=== PATIENT | female | born 1955 | race Caucasian/White ===

== ENCOUNTER 2025-06-20 14:21 | Emergency (ER) | payer MEDICARE, SELFPAY ==
--- NOTE | 2025-06-20 14:28 | ED_ITS ---
HPI - Skin/Abscess/Foreign Bdy General Chief complaint: Skin/Abscess/Foreign Body Stated complaint: Skin Sore/Headache Time Seen by Provider: 06/20/25 14:37 Source: patient and RN notes reviewed Mode of arrival: ambulatory Limitations: dementia History of Present Illness HPI narrative: 70-year-old female presents with concern for headache for the past 4 days. She reports she noticed a red painful bumps in her hairline today. She denies nasal congestion, rhinorrhea, sore throat. She denies injury or trauma. She denies general malaise, fever, body aches, chills, sweats. complaint: other (Redness) Related Data Home Medications ?Medication ?Instructions ?Recorded ?Confirmed ?Last Taken ?Type fluoxetine 40 mg capsule mg 06/20/25 Unknown History levothyroxine 100 mcg tablet mcg 06/20/25 Unknown His tory omeprazole 40 mg capsule,delayed mg 06/20/25 Unknown History release pravastatin 40 mg tablet mg 06/20/25 Unknown History Allergies Allergy/AdvReac Type Severity Reaction Status Date / Time codeine AdvReac Nausea Verified 06/20/25 14:37 Review of Systems Review of Systems: GENERAL: Well-appearing, well-nourished, and in no acute distress. HEAD: Normocephalic, atraumatic. EYES: PERRLA, sclera clear, and EOMI. No nystagmus. ENT: Nares clear. Mucous membranes moist. NECK: Supple. CHEST: No respiratory distress. Speaks in full sentences. HEART: Regular rate and rhythm. EXTREMITIES: Normal range of motion. No edema. Normal strength and sensation. SKIN: Warm, dry, no visible rash. Zosteriform lesion noted in the hairline NEURO: Alert and oriented x3. No focal deficits. Cranial nerves II through XII grossly intact PSYCH: Normal mood and affect All systems reviewed & are unremarkable except as noted in HPI and below PMFSH Comments At time of signature, agree with nursing past medical, surgical, social and family history. There is no relevant family history pertinent to the presenting complaint Exam Narrative: GENERAL: Well-appearing, well-nourished, and in no acute distress. HEAD: Normocephalic, atraumatic. EYES: PERRLA, conjunctivae clear ENT: Mucous membranes moist. NECK: Supple. No lymphadenopathy CHEST: Clear to auscultation. No respiratory distress. HEART: Regular rate and rhythm. SKIN: Warm, dry. Erythema, induration, tenderness, warmth with sharp margins noted (xx). No vesicles, bullae, necrosis, ecchymosis, crepitus noted. NEURO: Alert and oriented x3. PSYCH: Normal mood and affect Course Course Emergency Course: Patient is aware of diagnosis, understands and agrees to treatment plan. Anticipatory guidance given. Patient agrees to follow-up as directed and is aware of reasons to seek care at the emergency department. Portions of this record may have been created with voice recognition software Level of Care: Express Care Visit Vital Signs Vital signs: Reviewed. MDM - Skin/Abscess/Foreign Bdy MDM Narrative Medical decision making narrative: I evaluated this in the express care. History is obtained from patient who is an independent historian and physical exam was performed.? Available medical records were reviewed. ? Exam findings and relevant testing show no acute concerns or changes; patient is non-toxic appearing and is in no distress. Does not appear at this time to be erythema multiforme, bullous, SJS, TEN; no evidence at this time to suggest RMSF, NSTI, endocarditis or Lyme disease; patient looks well, nontoxic and is tolerating oral intake; no neurologic signs or symptoms; no headache, photophobia or neck pain; afebrile.? Patient does not have history of of penetrating trauma, laceration, blunt trauma, recent surgery, immunosuppression, malignancy, obesity, alcoholism, corticosteroid use.? Discussed the importance of follow-up, patient agrees; question, cellulitis versus necrotizing soft tissue infection versus abscess.?? Patient is appropriate for outpatient treatment and follow-up. Critical Care Time Critical Care Time Critical Care Time: No Discharge Plan Discharge Clinical Impression: Shingles Patient Disposition: Home Condition: Stable Instructions: Shingles (ED) Additional Instructions: Alternate Tylenol and Motrin for pain, body aches, fever. You may take 2 regular strength Tylenol every 4 hours, alternate with 3 regular strength Motrin every 6 hours so you are taking something every 2-3 hours. Apply topical pain medicine and take antiviral medicine as prescribed. Shingles pain can last weeks, sometimes months. If your pain persists after antiviral medication is complete please follow-up with your primary care provider for a long-term pain control plan. Follow-up with your doctor in the next 2 to 3 days. Go to the emergency room if you have any urgent concerns. Patient Language: Sami Prescriptions: New valacyclovir 1 gram tablet 1,000 mg PO TID 7 Days Qty: 21 0RF tramadol 50 mg tablet 50 mg PO Q6H PRN (Reason: pain) Qty: 20 0RF lidocaine 5 % cream 1 applic topical TID PRN (Reason: pain) Qty: 30 0RF No Action fluoxetine 40 mg capsule pravastatin 40 mg tablet omeprazole 40 mg capsule,delayed release(DR/EC) levothyroxine 100 mcg tablet Follow-up/Referrals: PHYSICIAN,MEDICAL ADMINISTRATIVE ASSISTANT [Primary Care Provider, Internal Medicine] Rima Jernigan DO [Physician, Family Practice] Referral Note: [place] Time of Disposition: 14:54
[2025-06-20 14:35] VITALS: BP 104/47; PULSE 89; RESP 16; TEMP 36.2; O2SAT 99
--- OUTSIDE RECORDS SUMMARY | 2025-06-20 16:26 | XMS_ITS | Clinical Summary ---
Author Organization [facility] Address [address] [place] [address] Care Team Providers Care Prescription Clerk Lenses Name Role Phone Unavailable Primary Care Provider Unavailabl e Social History Tobacco Use Types Packs/Day Years Used Date Smoking Tobacco: Never Assessed Comments Unknown Sex and Gender Information Value Date Recorded Sex Assigned at Not on file Legal Sex Female 10:57 AM CDT Gender Identity Not on file Sexual Orientation Not on file Plan of Treatment Upcoming Encounters Date Type Department Care Team (Late st Contact Info) Description 11/25/2025 1:00 PM CDT Office Visit [facility] [address] [address] [address] [place] [address] [place] [address] [place] [address] Health Maintenance Due Date Last Done Comments Colorectal Cancer Screening Colonoscopy (10 Years) 1955 Hepatitis C 02/20/1974 DTaP, Tdap and Td Vaccines ( 1 - Tdap) 02/20/1975 Mammogram Screening 1996 Pneumococcal Vaccine: 50+ Ye ars (1 of 1 - PCV) 02/20/2006 Zoster Vaccines (1 of 2) 02/20/2006 Dexa Scan (General) 02/20/2021 COVID-19 Vaccine (1 - 2023-2 5 season) 2025 Influenza Adult (#1) 2025 RSV Immunization or 60+ Years (1 - 1-dose 75+ series) 02/20/2031 Hepatitis A Vaccines Aged Out No long er eligible based on patient's age to complete this topic Meningococcal B Vaccine Aged Out No l onger eligible based on patient's age to complete this topic Meningococcal Vaccine Aged Out No dodie alexi eligible based on patient's age to complete this topic RSV Immunizations Under 20 Months Aged Out No longer eligible based on patient's age to complete this topic Insurance MEDICARE PART A
== END 2025-06-20 15:01 | disposition home or self-care (01) ==
PROVIDERS: Emergency Provider Nurse Practitioner
DX: B02.9 Zoster without complications (principal); Z79.899 Other long term (current) drug therapy
CPT/HCPCS: 99203; G0463

== ENCOUNTER 2025-06-24 17:14 | Emergency (ER) | payer MEDICARE, SELFPAY ==
--- OUTSIDE RECORDS SUMMARY | 2018-05-30 12:00 | XMS_ITS | Continuity of Care Document ---
Author Organization [facility] Address [address] [place] [address] Phone Care Team Providers Care Irradiated Fuel Handler Name Role Phone Eliseo Godfrey PT Unavailable Unavailable Procedures Procedure Date Therapeutic Exercise Therapeutic Exercise Neuromuscular Re-Ed Manual Therapy Vasopneumatic Therapeutic Exercise Neuromuscular Re-Ed Manual Therapy Vasopneumatic Therapeutic Exercise Neuromuscular Re-Ed Manual Therapy Vasopneumatic PT Evaluation Moderate Complexity Therapeutic Exercise Manual Therapy Vasopneumatic Advance Directives Directive Yes / No Effective Date File Name No Information Encounters Encounter Description Practice Location Reason(s) For Visit Diagnoses Date Provider Providers Copied on Encounter [facility], [address], [place], [place], [id number], tel:[phone] [place] Stiffness of right ankle, not elsewhere classifiedMuscle weakness (generalized)Oth er abnormalities of gait and mobilitySprain of unspecified ligament of right ankle, subs encntr Sep-2 5-201 8 Epifanio Gomes. . [facility], [address], [place], [place], [id number], tel:[phone] [place] Stiffness of right ankle, not elsewhere classifiedMuscle weakness (generalized)Oth er abnormalities of gait and mobilitySprain of unspecified ligament of right ankle, subs encntr Sep-2 0-201 8 Epifanio Gomes. . [facility], [address], [place], [place], [id number], tel:[phone] [place] Stiffness of right ankle, not elsewhere classifiedMuscle weakness (generalized)Oth er abnormalities of gait and mobilitySprain of unspecified ligament of right ankle, subs encntr Sep-1 8-201 8 Epifanio Gomes. . [facility], [address], [place], [place], [id number], tel:[phone] [place] Stiffness of right ankle, not elsewhere classifiedMuscle weakness (generalized)Oth er abnormalities of gait and mobilitySprain of unspecified ligament of right ankle, subs encntr Sep-1 4-201 8 Epifanio Goems. . [facility], [address], [place], [place], [id number], tel:[phone] [place] Stiffness of right ankle, not elsewhere classifiedMuscle weakness (generalized)Oth er abnormalities of gait and mobilitySprain of unspecified ligament of right ankle, subs encntr Sep-1 2-201 8 Epifanio Gomes. . 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 [facility] [id number] Social History Type Description Quantity Date Captured Comments Sex Female Smoking Status No Information Chief Complaint And Reason For Visit No Information Reason For Referral Reason For Referral No Information History Of Present Illness Encounter Date Complaint History Of Prese nt Illness No Information Functional Status Date Functional Assessmen t No Information Instructions Date Instruction Additional Infor mation No Information Assessments Type Assessment Date No Information Patient Care Teams Name Effective Dates (start - stop) Status Members No Information
[2025-06-24 17:20] VITALS: BP 133/65; PULSE 83; RESP 16; TEMP 36.6; O2SAT 100
--- NOTE | 2025-06-24 18:18 | ED.SKABFB ---
HPI - Skin/Abscess/Foreign Bdy General Chief complaint: Skin/Abscess/Foreign Body Stated complaint: Skin Problem/Dizziness/Pain/Nausea Time Seen by Provider: 06/24/25 17:50 Source: patient and RN notes reviewed Mode of arrival: ambulatory Limitations: no limitations History of Present Illness HPI narrative: 70-year-old female presents Express Care complaining shingles pain. Patient was here approximately 4 days ago was diagnosed with shingles to her scalp. Patient was sent home with topical lidocaine, tramadol, and valacyclovir. Patient says she has an shingles for approximately 8 days now. Patient says the pain is not getting any better injuries reported getting worse. Patient reports a severe headache from the rash reports slight nausea and decreased appetite due to the pain. Patient has tried the tramadol on topical lidocaine without relief. Patient has also been taking Motrin without any relief. Patient denies any fevers, worsening rash, vision problems, hearing problems, chest pain, breathing problems, or any other symptoms. Patient denies any significant past medical problems. Related Data Home Medications ?Medication ?Instructions ?Recorded ?Confirmed ?Last Taken ?Type fluoxetine 40 mg capsule mg 06/20/25 Unknown History levothyroxine 100 mcg tablet mcg 06/20/25 Unknown History omeprazole 40 mg capsule,delayed mg 06/20/25 Unknown History release pravastatin 40 mg tablet mg 06/20/25 Unknown History Allergies Allergy/AdvReac Type Severity Reaction Status Date / Time codeine AdvReac Nausea Verified 06/20/25 14:37 Review of Systems Review of Systems: CONSTITUTIONAL: Denies fever, chills, or sweats. EYES: Denies visual changes, redness, or discharge. ENT: Denies rhinorrhea, congestion, sore throat, hearing problems, or otalgia. CARDIOVASCULAR: Denies chest pain, palpitations, or edema. RESPIRATORY: Denies cough or dyspnea. GASTROINTESTINAL: Denies abdominal pain, nausea, vomiting, or diarrhea. GENITOURINARY: Denies dysuria or hematuria. SKIN: Positive for rash and pain. Negative for itching. MUSCULOSKELETAL: Denies back pain, joint pain, or myalgia. NEUROLOGIC: Denies headache, numbness, or weakness. PSYCHIATRIC: Denies anxiety or depression. All other systems reviewed are negative, except as documented in HPI. [facility] Comments At the time of my signature, I reviewed and agree with the nursing past medical, surgical, social, and family history. There is no relevant family history pertinent to the patient complaint. Exam Narrative: GENERAL: This is a well-nourished, well-developed adult, in no apparent distress. They are non ill-appearing, nontoxic appearing. HEAD: normocephalic, atraumatic. EYES: Sclera clear/white. Conjunctiva normal. Vision is grossly intact. Extraocular movements intact. Pupils PERRLA EARS: External ears normal, Hearing grossly intact. NOSE: External nose normal THROAT: Mucous membranes moist, NECK: Neck supple, CARDIOVASCULAR: Regular rate and rhythm RESPIRATORY: Respiratory rate normal, respiratory effort nonlabored, no respiratory distress SKIN: Scalp: Erythematous fascicular, papular rash to the lateral right scalp. It is tender to palpate. No area of fluctuance, appears to be scabbing over. No surrounding cellulitis or erythema. No induration. No exudate. NEURO: awake, alert, and oriented to person, place and time. There were no obvious focal neurologic abnormalities. EXTREMITIES: No joint tenderness, effusion, or edema noted. Course Course Emergency Course: Portions of this record may have been created with voice recognition software Level of Care: Express Care Visit Vital Signs Vital signs: Vital Signs Temperature 97.9 F 06/24/25 17:20 Pulse Rate 83 06/24/25 17:20 Respiratory Rate 16 06/24/25 17:20 Blood Pressure 133/65 06/24/25 17:20 Pulse Oximetry 100 06/24/25 17:20 Oxygen Delivery Room Air 06/24/25 17:20 Temperature 97.9 F 06/24/25 17:20 Pulse Rate 83 06/24/25 17:20 Respiratory Rate 16 06/24/25 17:20 Blood Pressure 133/65 06/24/25 17:20 Pulse Oximetry 100 06/24/25 17:20 Oxygen Delivery Room Air 06/24/25 17:20 Reviewed MDM - Skin/Abscess/Foreign Bdy MDM Narrative Medical decision making narrative: Patient likely has neuritis from shingles virus. No new lesions or forming no other lesions noted elsewhere patient's body. Advised patient stop taking tramadol, will send a short course of Percocet for pain. Patient says she can not tolerate Percocet with food. Will also prescribe a short course of prednisone for neuritis. Advised patient continue taking valacyclovir as directed. Will Refer patient to PCP for further evaluation and to get established. Strict ER precautions discussed with patient specially she develops uncontrollable pain, worsening rash, rash forming elsewhere on her body, fevers, unable to eat or drink, vision problems and hearing problems, chest pain fever breathing problems, or any serious concerns. Discussed physical exam findings. Advised supportive measures and signs/symptoms to go to the ER. Pt is appropriate for outpt treatment and f/u. 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 Take the Percocet as directed, do not drive or operate machinery while taking the Percocet as a make you drowsy. Do not combine this medication with tramadol. You may take ibuprofen 600 mg to 800 mg every 6-8 hours. Do not exceed more than 800 mg of ibuprofen per dose. Do not exceed more than 3200 mg ibuprofen in a day. You may take up to 1000 mg Tylenol every 6-8 hours. Do not exceed 1000 mg per dose, do exceed more than 4000 mg of Tylenol in a day. Percocet already contains Tylenol so please be mindful of the amount of Tylenol your consuming so you do not exceed the dose. Follow-up PCP in 3-5 days. If you develops a worsening rash, fevers, worsening pain, vision problems, hearing problems, unable to eat or drink, or any serious concerns please go to the ER immediately. Patient Language: Nigerian Prescriptions: New oxycodone-acetaminophen [Percocet] 5-325 mg tablet 1 tablet PO Q6H PRN (Reason: pain) Qty: 10 0RF prednisone 10 mg tablet See Taper PO DIRECTED Qty: 38 0RF Taper: Prednisone Taper from 60 mg;12 days 40 mg DAILY for 5 Days and 0 Hour 30 mg DAILY for 3 Days and 0 Hour 20 mg DAILY for 3 Days and 0 Hour 10 mg DAILY for 3 Days and 0 Hour No Action fluoxetine 40 mg capsule pravastatin 40 mg tablet omeprazole 40 mg capsule,delayed release(DR/EC) levothyroxine 100 mcg tablet valacyclovir 1 gram tablet 1,000 mg PO TID 7 Days Qty: 21 0RF tramadol 50 mg tablet 50 mg PO Q6H PRN (Reason: pain) Qty: 20 0RF lidocaine 5 % cream 1 applic topical TID PRN (Reason: pain) Qty: 30 0RF Follow-up/Referrals: Georgiana Acosta DO [Physician, Family Practice] Time of Disposition: 18:01
--- OUTSIDE RECORDS SUMMARY | 2025-06-24 19:02 | XMS_ITS | Clinical Summary ---
Author Organization [facility] Address [address] [place] [address] Care Team Providers Care Hand Model Name Role Phone Unavailable Primary Care Provider [...] Description 11/25/2025 1:00 PM CDT Office Visit [facility] [address] [address] [address] [place] [address] [place] [address] [place] [address] Health Maintenance Due Date Last Done Comments [...]
== END 2025-06-24 18:07 | disposition home or self-care (01) ==
DX: B02.29 Other postherpetic nervous system involvement (principal)
CPT/HCPCS: 99213; G0463